=== PATIENT | male | born 1980 | race African-American/Black ===

== ENCOUNTER 2017-10-24 11:11 | Inpatient (IN) ==
[2017-10-24] MEDS ORDERED: Lidocaine PF 1% Inj 5 ML Syringe INFILTRATN ONE (12:00)
[2017-10-24] MEDS ORDERED: Phenylephrine/NS 1000 MCG/10ML Syringe IV.PUSH ONE (12:00)
[2017-10-24] MEDS ORDERED: Chlorhexidine Gluconate 2% 1 Pack (2 Cloths) TOPICAL SCH (12:15)
[2017-10-24] MEDS ORDERED: Metoprolol Tartrate 25 MG Tablet PO SCH (12:15)
--- NOTE | 2017-10-24 12:29 | XR ---
EXAM DATE: 10/24/2017 12:24 PM EDT AGE/SEX: 37 years / Male INDICATIONS: Evaluate for pneumonia, pneumothorax, or any communicable disease. Pre op proctocolecto my. CLINICAL DATA: This is the patient's initial encounter. Patient reports that signs and symptoms have been present for 1 day and indicates a pain score of 0/10. MEDICAL/SURGICAL HISTORY: None. None. COMPARISON: No prior exams available for comparison. FINDINGS: A single AP view of the chest demonstrates the lungs to be symmetrically aerated without evidence of mass, infiltrate or effusion. Minimal linear scarring right lung base. The cardiomediastinal contour s are unremarkable. Osseous structures are intact. CONCLUSION: No active disease. Electronically signed by: Jay Doe MD 10/24/2017 12:27 PM EDT
[2017-10-24 12:41] LABS: Bacteria,Urine Occasional /hpf; Bilirubin,Urine Negative (Negative); Clarity,Urine Hazy (Clear); Color,Urine Yellow (Yellw/Straw); Glucose,Urine (UA) Negative (Negative); Hyaline Casts,Urine 1 /lpf (0-3); Leukocyte Esterase,Urine Moderate (Negative); Mucus,Urine Few /lpf (Occasional); Nitrite,Urine Negative (Negative); Specific Gravity,Urine 1.029 (1.002-1.035); Squamous Epithelial Cell,Urine <1 /hpf (0-5)
[2017-10-24] MEDS ORDERED: HYDROmorphone PF Inj 2 MG/ML Vial ONE (12:41)
[2017-10-24] MEDS ORDERED: Sodium Chlor 0.9% Inj 500 ML IV.SIG SCH (13:00)
[2017-10-24 13:11] LABS: Hematocrit 31.3 % (39.0-51.0); Hemoglobin 9.8 gm/dL (13.0-17.0); Mean Corpuscular HGB Conc 31.3 % (32.0-36.0); Mean Corpuscular Hemoglobin 20.1 pg (27.0-34.0); Mean Corpuscular Volume 64.2 fL (80.0-100.0); Mean Platelet Volume 9.6 fL (7.0-11.0); Platelet Count 188 th/mm3 (150-450); Red Blood Count 4.87 mil/mm3 (4.50-5.90); Red Cell Distribution Width 18.9 % (11.6-17.2); White Blood Count 7.8 th/mm3 (4.0-11.0)
[2017-10-24 13:13] LABS: INR 1.1 Ratio; Prothrombin Time 11.4 sec (9.8-11.6)
[2017-10-24 13:26] LABS: Alanine Aminotransferase 18 U/L (12-78); Albumin 4.4 g/dL (3.4-5.0); Anion Gap 11 meq/L (5-15); Aspartate Aminotransferase 15 U/L (15-37); Blood Urea Nitrogen 13 mg/dL (7-18); Calcium 8.8 mg/dL (8.5-10.1); Carbon Dioxide 24.9 meq/L (21.0-32.0); Chloride 107 meq/L (98-107); Glomerular Filtration Rate 77 mL/min (>89); Glucose,Random 80 mg/dL (74-106); Potassium 3.6 meq/L (3.5-5.1); Sodium 143 meq/L (136-145)
[2017-10-24 13:28] LABS: Alkaline Phosphatase 68 U/L (45-117); Total Protein 7.5 g/dL (6.4-8.2)
[2017-10-24 14:02] LABS: Lymphocytes 10 % (9-44); Monocytes 8 % (0-8)
[2017-10-24 14:04] LABS: Acanthocytes Occ
[2017-10-24 14:05] LABS: Ovalocytes 1+; Platelet Estimate Normal (Normal); Platelet Morphology Normal (Normal)
[2017-10-24] MEDS ORDERED: Sugammadex Inj 200 MG/2 ML Vial IV.PUSH ONE (16:47)
[2017-10-24] MEDS ORDERED: Potassium Chlor 20 mEq Premix 20 MEQ/100 ML PIGGYBACK IV.SIG PRN (17:16)
[2017-10-24] MEDS ORDERED: Potassium Chlor 40 mEq Premix 40 MEQ/100 ML PIGGYBACK IV.SIG PRN (17:16)
[2017-10-24] MEDS ORDERED: fentaNYL Citrate Inj 100 MCG/2 ML Ampul ONE (17:23)
[2017-10-24] MEDS: KCL 20 mEq/D5W/LR Inj 1,000 ML IV.CONT SCH ×2 (17:30→23:10)
[2017-10-24] MEDS: Morphine Inj 30 MG/30 ML PCA.VIAL PCA PRN (17:30)
[2017-10-24] MEDS ORDERED: Naloxone Inj 0.4 MG/ML Vial IV.PUSH PRN (17:38)
[2017-10-24] MEDS ORDERED: Morphine Inj 4 MG/ML Vial IV.SIG ONE (17:38)
[2017-10-24] MEDS ORDERED: KCL 20 mEq/D5W/LR Inj 1,000 ML ONE (17:42)
[2017-10-24] MEDS ORDERED: Morphine Inj 30 MG/30 ML PCA.VIAL PCA ONE (17:44)
[2017-10-24] MEDS ORDERED: *morphine SULFATE 10 MG/ML PERIprocedure ONLY ONE (17:48)
[2017-10-24] MEDS ORDERED: *Meperidine Inj 25 MG/ML Vial PERIprocedural Use ONLY ONE (18:01)
[2017-10-24 18:13] LABS: Baso # (Auto) 0.1 th/mm3 (0.0-0.2); Baso % (Auto) 0.5 % (0.0-2.0); Hematocrit 29.1 % (39.0-51.0); Hemoglobin 8.9 gm/dL (13.0-17.0); Lymph # (Auto) 0.7 th/mm3 (1.0-4.8); Lymph % (Auto) 4.8 % (9.0-44.0); Mean Corpuscular Hemoglobin 19.8 pg (27.0-34.0); Mean Corpuscular Volume 65.2 fL (80.0-100.0); Mean Platelet Volume 9.1 fL (7.0-11.0); Mono # (Auto) 0.7 th/mm3 (0.0-0.9); Mono % (Auto) 4.3 % (0.0-8.0); Neut # (Auto) 14.1 th/mm3 (1.8-7.7); Neut % (Auto) 90.4 % (16.0-70.0); Platelet Count 173 th/mm3 (150-450); Red Blood Count 4.47 mil/mm3 (4.50-5.90); Red Cell Distribution Width 19.1 % (11.6-17.2); White Blood Count 15.6 th/mm3 (4.0-11.0)
[2017-10-24 18:15] LABS: Mean Corpuscular HGB Conc 30.4 % (32.0-36.0)
[2017-10-24 18:51] LABS: Calcium 7.7 mg/dL (8.5-10.1); Carbon Dioxide 24.4 meq/L (21.0-32.0); Potassium 3.6 meq/L (3.5-5.1)
[2017-10-24] MEDS ORDERED: Zolpidem Tartrate 5 MG Tablet PO PRN (21:00)
[2017-10-24] MEDS: Dextrose 5%/NaCl 0.9% Inj 1,000 ML IV.CONT SCH ×2 (21:38→21:41)
[2017-10-25] MEDS: Ketorolac Inj 30 MG/ML (IVP) Vial IV.PUSH PRN ×2 (02:25→12:45)
[2017-10-25] MEDS: KCL 20 mEq/D5W/LR Inj 1,000 ML IV.CONT SCH ×5 (03:00→20:20)
[2017-10-25] MEDS ORDERED: KCL 20 mEq/D5W/LR Inj 1,000 ML IV.CONT SCH (03:30)
[2017-10-25] MEDS: Dextrose 5%/NaCl 0.9% Inj 1,000 ML IV.CONT SCH (05:19)
[2017-10-25 06:07] LABS: Baso % (Auto) 0.3 % (0.0-2.0); Hematocrit 26.3 % (39.0-51.0); Hemoglobin 8.2 gm/dL (13.0-17.0); Lymph # (Auto) 1.4 th/mm3 (1.0-4.8); Lymph % (Auto) 8.9 % (9.0-44.0); Mean Corpuscular HGB Conc 31.3 % (32.0-36.0); Mean Corpuscular Hemoglobin 20.1 pg (27.0-34.0); Mean Platelet Volume 8.9 fL (7.0-11.0); Mono # (Auto) 1.8 th/mm3 (0.0-0.9); Mono % (Auto) 11.4 % (0.0-8.0); Neut # (Auto) 12.6 th/mm3 (1.8-7.7); Neut % (Auto) 79.4 % (16.0-70.0); Platelet Count 163 th/mm3 (150-450); Red Blood Count 4.11 mil/mm3 (4.50-5.90); Red Cell Distribution Width 19.3 % (11.6-17.2); White Blood Count 15.8 th/mm3 (4.0-11.0)
[2017-10-25 06:27] LABS: Calcium 8.1 mg/dL (8.5-10.1); Potassium 3.8 meq/L (3.5-5.1)
[2017-10-25] MEDS: Pantoprazole Inj 40 MG Vial IV.PUSH SCH (08:23)
--- NOTE | 2017-10-25 11:56 | MP ---
cc: Jeromy Pizano MD, John T MD DATE OF OPERATION: 10/24/2017 PROCEDURE: Total proctocolectomy, ileoanal J-pouch. PREOPERATIVE DIAGNOSIS: Familial polyposis syndrome. POSTOPERATIVE DIAGNOSIS: Familial polyposis syndrome. ANESTHESIA: General endotracheal. SURGEON: Jeromy Pizano MD. SUPERVISOR CELL OPERATION: Arsenio Jaffe MD. ESTIMATED BLOOD LOSS: 300 mL. OPERATING TIME: Two hours and 40 minutes. OPERATIVE FINDINGS: This patient was found to have familial polyposis syndrome. His mother had a total abdominal colectomy and ileorectal surgery done many years ago. He was found to have thousands of polyps in his colon; and, for this reason, a total proctocolectomy ileoanal pouch was recommended. At surgery, the patient had had a previous laparotomy for blunt trauma some years ago and was found to have multiple adhesions throughout the abdominal cavity and the small bowel. He also was found to have an internal hernia near the ileocolic vessels with a loop of small bowel through the mesentery of the ileocolonic region. Once this was unwrapped we were able to do a total proctocolectomy and an ileoanal pouch procedure. Exploration of the remainder of the abdomen revealed that the colon, small bowel, liver, gallbladder, stomach was all palpably normal. He had very little omentum because of his thin body habitus; however, it was mobilized from the transverse colon and spared. OPERATIVE TECHNIQUE: The patient was placed on the table in the supine position. After adequate general endotracheal anesthesia, the legs were placed in the perineal lithotomy position. The abdomen and perineum were prepped and draped in the usual manner. A midline incision was made from the pubis to the xiphoid through his previous upper abdominal incision and mesh from his ventral hernia repair. The abdominal cavity was entered with the above-mentioned findings and the adhesions to the abdominal wall were taken down with electrocautery. The small bowel adhesions throughout the length of the small bowel were lysed with electrocautery and sharp dissection and the internal hernia that was found near the cecum and the ileocolic vessels was unwrapped and the adhesions were taken down. Once the small bowel adhesions were taken down, the cecum and ascending colon were mobilized as well as the hepatic flexure and transverse colon entering the lesser sac, mobilizing the slight wispy omentum from the transverse colon. Next, the splenic flexure was mobilized as was the descending colon. Attention was turned to the sigmoid colon and it was fully mobilized. He had a fairly redundant sigmoid colon. Next, the inferior mesenteric artery was identified, doubly clamped, cut, and doubly ligated with 0 Vicryl ligatures and the left and right ureters were identified and protected at all times. The left colic vessels were clamped, cut, and ligated and then the middle colic vessels were doubly clamped, cut, and doubly ligated as well. The right colic vessels were clamped, cut, and ligated and the ileocolic vessels were clamped, cut, and ligated as well. Once this was done, the terminal ileum was divided with a DENA-75 stapling device. The retrorectal space was entered and the dissection was taken down to the pelvic floor posteriorly. The lateral pelvic peritoneum was incised bilaterally and then the anterior cul-de-sac was entered and the dissection was taken down posterior to the prostate to the pelvic floor anteriorly. Once the full colon and rectum were mobilized all the way to the levator muscles, the rectum was divided with a contour stapling device just above the dentate line. Once this was done, the pelvis and abdominal cavity were irrigated thoroughly with saline solution, aspirated dry, and hemostasis was obtained. Once this was done, we then created the ileal J pouch and created a 9 cm pouch finding the portion of the distal small bowel that would reach the furthest without any tension on the mesentery. Once this was achieved, an enterotomy was made and a 75 DENA stapler was placed down both limbs and fired. We then fired another half of the DENA stapler down the 2 limbs and a 9 cm pouch was created. The distal efferent defunctionalized piece of small bowel that was not going to be functional was cleared of its mesentery along the small bowel and then that portion of the end of the small bowel was removed with an [employer] DENA stapling device once again. Once this was accomplished, the pouch length was measured at about 9 cm. A pursestring stapler was then used for the pouch opening where the pouch was created. It should be mentioned that the first fire of the DENA instrument only fired about 1 cm and it needed to be re-fired. This area of the staple line, once the stapler was used, was oversewn for approximately 1 cm with interrupted 3-0 Vicryl seromuscular sutures just to reinforce. Next, the anvil of the [place] 29 EEA stapler was placed in the ileoanal pouch and the pursestring that was previously placed was tied. Dr. Jaffe then went below and placed the EEA instrument transanally and brought the trocar out posterior to the transverse staple line and the instrument was connected, closed, and fired, creating anastomosis. The afferent limb of the small bowel was over to the right and the efferent limb was to the left and the mesentery was anterior. Once this was done, the anastomosis was checked with a proctosigmoidoscopy with Dr. Jaffe and air was insufflated into the pouch and no air leaks were identified. We then chose an area for a diverting ileostomy on the right side of the abdomen and the stoma site was made in the right lower quadrant in the lateral portion of the rectus muscle. The stoma site in the small bowel was chosen and the mesentery was cleared and the small bowel was stapled closed on the distal side with a [place] 30 stapler to make it a fully diverting stoma. The stoma was brought out through the stoma site. Next, the abdominal cavity was irrigated thoroughly with several more liters of saline solution, aspirated dry. Again, hemostasis was maintained. A drain was placed through a separate stab wound in the left lower quadrant into the pelvis and brought out. Once this was achieved, the bowels were replaced in the abdominal cavity in an medical recruiter manner and the abdominal cavity was closed in layers with a single layer closure of a double-stranded #1 PDS through the fascia and the previously divided mesh from his hernia repair. Once this was done, the subcutaneous tissue was irrigated thoroughly with saline solution and the skin was closed with running 3-0 Vicryl subcuticular sutures. Our attention was then turned to the ileostomy, which was opened and then matured in an end loop fashion, maturing the ileostomy with interrupted 3-0 Vicryl sutures. A 57 mm appliance was placed on the ileostomy and dressings were applied and taped into place. Sponge, needle, and instrument counts were reported as correct. The estimated blood loss was 300 mL. Operating time was 2 hours and 40 minutes. The patient tolerated the procedure well and left the operating room in good condition. MD NIKKO Carmen/salina , 11:12 AM , 11:26 AM MTDDeidra
[2017-10-25] MEDS: Morphine Inj 30 MG/30 ML PCA.VIAL PCA PRN (12:56)
--- NOTE | 2017-10-25 14:50 | P.PNCS ---
Subjective Colorectal Surgery Post Op Day #: 1 Interval history: Very comfortable. Will stop CARDIAC MONITOR in AM. Start oral pain meds. No N or V. Small liquid stool from Ileostomy. Objective Result Diagrams: 10/25/17 05:27 10/25/17 05:27 Objective Remarks: VS-S Abd: soft,flat,dressing dry. Drain now serous. Assessment and Plan - Plan OOB ambulate,transfer D/C tele, Stoma nurse consult, Discharge planning consult. Decrease IVs,slowly advance diet. D/C chowdary and CARDIAC MONITOR in AM
--- NOTE | 2017-10-25 18:47 | P.PNWCN ---
Wound Care Nurse Consult Description: Received new ostomy teaching ostomy management consult from Doctor Pizano Communicated with: USHA Or[facility] and Doctor Pizano Recommendation: Please empty pouch when 1/3 to 1/2 full. Change ostomy appliance every 3 to 5 days or as needed if leaking. Monitor stoma for output and color. Use Durahesive 2 1/4 wafers provided for patient in room instead of using stomahesive wafers provided in colostomy kits if available Incision - Incision Anterior Abdomen Other Cover Dressing: foam tape Bowel Diversion Stoma - Bowel Stoma Right Lower Abdomen Stoma Appearance: Beefy Red, Oval Collection Device: Two-piece, Moldable Wafer Drainage Description: Liquid, Green Wafer Size: 2 1/4 Moldable Stoma Care: Pouch and Wafer Changed, Skin Care Sally-Stomal Skin Appearance: Intact Sally-Stomal Surrounding Tissue Sensation Description: No Symptoms - Additional Information Additional Information: Patient seen on [facility] for new ostomy teaching and ostomy management.Patient is laying in bed upon verse writer's arrival.Patient is awake and alert. Discussed with patient what to expect after ileostomy surgery including diet,how and when to change ostomy appliance, s/s of dehydration, when to empty pouch, stoma color, stoma appearance, and output. Patient was able to return demonstrate application of wafer and pouch to practice stoma. Assessed stoma,ileostomy stoma is located on the RLQ of abdomen.Stoma presents as red and oval through transparent pouch and measures 1 1/4 tall and 1 3/4 wide. Wafer is noted with erosion beyond the flange and is lifting up near incision line. Removed ostomy appliance in place using adhesive remover. Adhesive beyond hydrocolloid is is lifting up and saturated under midline incision dressing. Removed this carefully not to disturb midline incision dressing to much. Applied new wafer molding it to size. Applied skin barrier film to peristomal skin before applying new wafer with attached adaptor. Snapped pouch in place. Adhesive strip near incision line was cut back so not lay on incision line.Gauze pad was applied to separate dressing from adhesive strip on ostomy wafer and reinforce dressing to midline incision. Patient tolerated procedure well.Call placed to Doctor cement mason [address] to notify of ileostomy appliance change with midline dressing disturbance, and reinforcement of dressing.
[2017-10-26] MEDS: KCL 20 mEq/D5W/LR Inj 1,000 ML IV.CONT SCH ×3 (02:11→20:50)
[2017-10-26 06:51] LABS: Calcium 8.3 mg/dL (8.5-10.1); Carbon Dioxide 30.2 meq/L (21.0-32.0)
[2017-10-26 07:11] LABS: Baso # (Auto) 0.1 th/mm3 (0.0-0.2); Baso % (Auto) 0.5 % (0.0-2.0); Eos % (Auto) 0.2 % (0.0-4.0); Hematocrit 27.5 % (39.0-51.0); Hemoglobin 8.3 gm/dL (13.0-17.0); Lymph % (Auto) 13.7 % (9.0-44.0); Mean Corpuscular Hemoglobin 19.8 pg (27.0-34.0); Mean Corpuscular Volume 65.3 fL (80.0-100.0); Mean Platelet Volume 10.1 fL (7.0-11.0); Mono # (Auto) 1.1 th/mm3 (0.0-0.9); Mono % (Auto) 7.4 % (0.0-8.0); Neut # (Auto) 11.5 th/mm3 (1.8-7.7); Neut % (Auto) 78.2 % (16.0-70.0); Platelet Count 173 th/mm3 (150-450); Red Blood Count 4.22 mil/mm3 (4.50-5.90); Red Cell Distribution Width 19.1 % (11.6-17.2); White Blood Count 14.7 th/mm3 (4.0-11.0)
[2017-10-26 07:17] LABS: Mean Corpuscular HGB Conc 30.3 % (32.0-36.0)
[2017-10-26] MEDS: Pantoprazole Inj 40 MG Vial IV.PUSH SCH (08:18)
[2017-10-27 00:08] VITALS: O2SAT 99
[2017-10-27] MEDS: KCL 20 mEq/D5W/LR Inj 1,000 ML IV.CONT SCH (01:10)
[2017-10-27] MEDS: Pantoprazole Inj 40 MG Vial IV.PUSH SCH (08:18)
[2017-10-27 09:27] VITALS: BP 118/85; RESP 18; TEMP 98.2
[2017-10-27 12:08] VITALS: PULSE 123
--- NOTE | 2017-11-20 14:10 | MD ---
cc: Jeromy Pizano MD DATE OF DISCHARGE: 10/27/2017 ADMISSION DIAGNOSIS: Familial polyposis syndrome. DISCHARGE DIAGNOSIS: Familial polyposis syndrome. OPERATIVE PROCEDURE: 10/24/2017: Total proctocolectomy, ileoanal J-pouch. LABORATORY DATA: The pathology report on the removed specimen revealed full colon and rectum and terminal ilium. There were innumerable adenomatous polyps of the colon, negative for any high-grade dysplasia or malignancy. Ten pericolonic lymph nodes were examined and were all negative for malignancy, as well. The margins of the resection were negative for adenomatous changes. HOSPITAL COURSE: The patient was admitted to the hospital on 10/24/2017, underwent a total proctocolectomy with ileoanal J-pouch and diverting ileostomy. Postoperatively, on the first postoperative day was started on a clear liquid diet; on the second postoperative day was started on full liquid diet. He was discharged from the hospital on postoperative day #3. DISCHARGE INSTRUCTIONS: He is instructed do no driving for 2 weeks, do no heavy lifting for 6 weeks and to call me with any problems. He was instructed to followup with me in the office in 2 weeks' time. Jeromy Pizano MD JWALI/norman , 01:28 PM , 01:33 PM
== END 2017-10-27 11:05 | disposition home health service (06) ==
LOC: HSDI 11:11 → HCIS 21:36
PROVIDERS: ADMIT Colon & Rectal Surgery; ATTEND Colon & Rectal Surgery

== ENCOUNTER 2017-12-01 19:49 | Observation (INO) ==
[2017-12-01] MEDS ORDERED: Sod Chloride 0.9% Inj 1,000 ML IV.SIG ONE ×2 (21:27→22:46)
[2017-12-01 21:56] LABS: Baso # (Auto) 0.1 th/mm3 (0.0-0.2); Baso % (Auto) 0.9 % (0.0-2.0); Eos # (Auto) 0.1 th/mm3 (0.0-0.4); Hematocrit 34.2 % (39.0-51.0); Hemoglobin 10.7 gm/dL (13.0-17.0); Lymph # (Auto) 2.4 th/mm3 (1.0-4.8); Lymph % (Auto) 22.8 % (9.0-44.0); Mean Corpuscular HGB Conc 31.3 % (32.0-36.0); Mean Corpuscular Hemoglobin 19.6 pg (27.0-34.0); Mean Corpuscular Volume 62.6 fL (80.0-100.0); Mean Platelet Volume 9.5 fL (7.0-11.0); Mono # (Auto) 0.9 th/mm3 (0.0-0.9); Mono % (Auto) 8.5 % (0.0-8.0); Neut # (Auto) 7.1 th/mm3 (1.8-7.7); Neut % (Auto) 66.8 % (16.0-70.0); Platelet Count 246 th/mm3 (150-450); Red Blood Count 5.46 mil/mm3 (4.50-5.90); Red Cell Distribution Width 17.8 % (11.6-17.2); White Blood Count 10.6 th/mm3 (4.0-11.0)
[2017-12-01 22:07] LABS: Albumin 4.7 g/dL (3.4-5.0); Anion Gap 7 meq/L (5-15); Aspartate Aminotransferase 14 U/L (15-37); Blood Urea Nitrogen 26 mg/dL (7-18); Calcium 9.1 mg/dL (8.5-10.1); Carbon Dioxide 23.9 meq/L (21.0-32.0); Chloride 102 meq/L (98-107); Glomerular Filtration Rate 71 mL/min (>89); Glucose,Random 95 mg/dL (74-106); Potassium 4.2 meq/L (3.5-5.1); Sodium 133 meq/L (136-145)
[2017-12-01 22:08] LABS: Alanine Aminotransferase 23 U/L (12-78)
[2017-12-01 22:10] LABS: Alkaline Phosphatase 91 U/L (45-117); Total Protein 8.6 g/dL (6.4-8.2)
[2017-12-01] MEDS ORDERED: Sod Chloride 0.9% Inj 1,000 ML IV.CONT SCH (23:00)
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
[2017-12-02] MEDS: Pantoprazole Inj 40 MG Vial IV.PUSH SCH (00:09)
[2017-12-02] MEDS ORDERED: Sod Chloride 0.9% Inj 1,000 ML IV.SIG SCH (03:00)
[2017-12-02 04:34] LABS: Bilirubin,Urine Negative (Negative); Clarity,Urine Hazy (Clear); Color,Urine Yellow (Yellw/Straw); Glucose,Urine (UA) Negative (Negative); Leukocyte Esterase,Urine Negative (Negative); Mucus,Urine Few /lpf (Occasional); Nitrite,Urine Negative (Negative); Specific Gravity,Urine 1.029 (1.002-1.035); Squamous Epithelial Cell,Urine <1 /hpf (0-5)
[2017-12-02 06:47] LABS: Hematocrit 28.7 % (39.0-51.0); Hemoglobin 8.9 gm/dL (13.0-17.0); Mean Corpuscular Hemoglobin 19.5 pg (27.0-34.0); Mean Corpuscular Volume 62.9 fL (80.0-100.0); Mean Platelet Volume 9.1 fL (7.0-11.0); Platelet Count 188 th/mm3 (150-450); Red Blood Count 4.56 mil/mm3 (4.50-5.90); Red Cell Distribution Width 17.6 % (11.6-17.2); White Blood Count 8.3 th/mm3 (4.0-11.0)
[2017-12-02 07:56] LABS: Calcium 8.1 mg/dL (8.5-10.1); Carbon Dioxide 24.1 meq/L (21.0-32.0); Potassium 4.2 meq/L (3.5-5.1)
[2017-12-02 08:39] LABS: Acanthocytes Occ; Lymphocytes 17 % (9-44); Monocytes 6 % (0-8); Platelet Estimate Normal (Normal); Platelet Morphology Normal (Normal)
--- NOTE | 2017-12-02 09:37 | P.PNCS ---
Subjective Interval history: Pt admitted last night 23 hour obs for mild dehydration and lethargy and N and V. Feels better this AM after hydration, but still mildly weak. Will try diet today Objective Result Diagrams: 12/02/17 06:11 12/02/17 06:11 Objective Remarks: Abd: soft,flat, non tender Assessment and Plan - Plan BUN,Creatinine improving with hydration. Continue IVs at 200/hr. OOB. Consult Sarah Gomez RN for Ileostomy questions. Start diet. Ambulate. Probable D/C tomorrow
--- NOTE | 2017-12-02 10:05 | MH ---
cc: Jeromy Pizano MD, John T MD DATE OF ADMISSION: 12/01/2017 CHIEF COMPLAINT: Weakness, lethargy, nausea, vomiting. HISTORY OF PRESENT ILLNESS: This patient is well known to me. On 10/24/2017, he underwent a total proctocolectomy, ileoanal pouch procedure with a diverting loop ileostomy. The patient has done well postoperatively. I have seen him a couple of times in the office. He has had no problems with dehydration up until now. The patient became progressively weaker over the last several days. He tried to go out to one of his daughter's football games and became weak and had to go home. The patient says that he also began having nausea and a small amount of vomiting and was unable to eat. His ileostomy has been functioning well. He has had no significant drainage from his ileorectal pouch. Past medical history, family history social history, review of systems are negative except for the fact that he has familial polyposis syndrome, had thousands of polyps present in his colon, and underwent the total proctocolectomy over a month ago. PHYSICAL EXAMINATION: GENERAL: Well-developed, well-nourished, thin male in no acute distress. SKIN: Warm and dry. HEENT: Extraocular muscles intact. NECK: Supple. ABDOMEN: Flat, soft, nontender, no hematemesis. The wound is well healed. Ileostomy is functioning. He says he is having some itching around the ileostomy. RECTAL: Exam was not done. EXTREMITIES: Range of motion within normal limits. NEUROLOGIC: Grossly normal. IMPRESSION: Status post total proctocolectomy with ileoanal pouch procedure done about 5 weeks ago with a diverting ileostomy. The patient became slightly more dehydrated with an elevated BUN and creatinine on admission of BUN of 26, creatinine of 1.35. Sodium was slightly decreased at 133. Bilirubin was elevated at 1.2, as was his total protein 8.6, all due to dehydration. PLAN: I will continue to rehydrate him. I am going to change his IV to lactated Ringers solution, since he has had the normal saline and his sodium, potassium, chloride are all up at this time. BUN and creatinine slightly down this morning at 20 and 1.14. We will ask enterostomal nursing to see the patient as well for the itching around his ileostomy and we will monitor his ileostomy outputs to see if we need any Imodium started. We will start him on a regular diet. MD NIKKO Carmen/teresa , 09:45 AM , 09:52 AM
--- NOTE | 2017-12-02 15:34 | P.PNWCN ---
Wound Care Nurse Consult Description: Consult for Ostomy Management of temporary RLQ Ileostomy per Dr Pizano Communicated with: Patient RN Recommendation: Remove wafer Q3D and cleanse skin, pat dry. If there are any open areas, sprinkle stoma powder and wipe away excess. Maurice with Cavilon skin barrier film and allow to air dry. Place a new wafer size 1 3/4" over stoma and place pouch, ensuring the bottom is closed. Hold hand over pouching system for ~3 min to warm. Additional information: Patient seen in H pod for ostomy teaching. Patient was educated extensively on skin care and the need to stay hydrated with his ileostomy. Supplies obtained by journalists and other writers and brought to patient to take home with him until his shipment of supplies can be obtained.
[2017-12-03] MEDS: Pantoprazole Inj 40 MG Vial IV.PUSH SCH (00:43)
[2017-12-03 07:26] LABS: Hematocrit 24.9 % (39.0-51.0); Hemoglobin 7.8 gm/dL (13.0-17.0); Mean Corpuscular HGB Conc 31.4 % (32.0-36.0); Mean Corpuscular Hemoglobin 19.8 pg (27.0-34.0); Mean Platelet Volume 8.9 fL (7.0-11.0); Platelet Count 158 th/mm3 (150-450); Red Blood Count 3.96 mil/mm3 (4.50-5.90); Red Cell Distribution Width 17.7 % (11.6-17.2)
[2017-12-03 07:45] LABS: Anion Gap 8 meq/L (5-15); Blood Urea Nitrogen 12 mg/dL (7-18); Calcium 8.2 mg/dL (8.5-10.1); Carbon Dioxide 27.3 meq/L (21.0-32.0); Chloride 109 meq/L (98-107); Glomerular Filtration Rate Greater Than 89 mL/min (>89); Glucose,Random 84 mg/dL (74-106); Potassium 4.1 meq/L (3.5-5.1); Sodium 144 meq/L (136-145)
[2017-12-03 07:53] VITALS: RESP 16
[2017-12-03 11:51] VITALS: BP 92/50; PULSE 58; TEMP 97.8; O2SAT 100
== END 2017-12-03 13:37 | disposition home or self-care (01) ==
LOC: NEPC 19:49 → NEDA 19:49 → NEPHCDU 12-02 00:18
PROVIDERS: ADMIT Colon & Rectal Surgery; ATTEND Colon & Rectal Surgery

== ENCOUNTER 2018-01-16 11:13 | Inpatient (IN) ==
[2018-01-16] MEDS ORDERED: Sodium Chlor 0.9% Inj 500 ML IV.CONT ONE (11:45)
[2018-01-16] MEDS ORDERED: Metoprolol Tartrate 25 MG Tablet PO ONE (11:45)
[2018-01-16] MEDS ORDERED: Chlorhexidine Gluconate 2% 1 Pack (2 Cloths) TOPICAL ONE (11:45)
[2018-01-16] MEDS ORDERED: Dextrose 5%/NaCl 0.9% Inj 1,000 ML IV.CONT SCH (12:00)
[2018-01-16] MEDS ORDERED: ceFAZolin 1 GM Premix Inj 1 GM/50 ML IV.SIG SCH (12:00)
[2018-01-16 12:34] LABS: Baso # (Auto) 0.1 th/mm3 (0.0-0.2); Eos # (Auto) 0.1 th/mm3 (0.0-0.4); Eos % (Auto) 1.9 % (0.0-4.0); Hematocrit 28.1 % (39.0-51.0); Hemoglobin 8.6 gm/dL (13.0-17.0); Lymph # (Auto) 2.4 th/mm3 (1.0-4.8); Lymph % (Auto) 31.7 % (9.0-44.0); Mean Corpuscular Hemoglobin 19.5 pg (27.0-34.0); Mono # (Auto) 0.5 th/mm3 (0.0-0.9); Mono % (Auto) 6.7 % (0.0-8.0); Neut # (Auto) 4.4 th/mm3 (1.8-7.7); Neut % (Auto) 58.7 % (16.0-70.0); Platelet Count 253 th/mm3 (150-450); Red Cell Distribution Width 19.4 % (11.6-17.2); White Blood Count 7.6 th/mm3 (4.0-11.0)
[2018-01-16 12:35] LABS: Mean Corpuscular HGB Conc 30.5 % (32.0-36.0)
[2018-01-16 13:27] LABS: Eosinophils 2 % (0-4); Lymphocytes 12 % (9-44); Metamyelocytes 1 % (0-1); Monocytes 5 % (0-8)
[2018-01-16 13:28] LABS: Acanthocytes Occ; Ovalocytes 1+; Platelet Estimate Normal (Normal); Platelet Morphology Normal (Normal)
[2018-01-16] MEDS ORDERED: Sugammadex Inj 200 MG/2 ML Vial IV.PUSH ONE (13:38)
[2018-01-16] MEDS ORDERED: Ketorolac Inj 30 MG/ML (IVP) Vial IV.PUSH ONE (13:52)
[2018-01-16] MEDS ORDERED: Lidocaine PF 1% Inj 5 ML Syringe INFILTRATN ONE (13:52)
[2018-01-16] MEDS ORDERED: Potassium Chlor 20 mEq Premix 20 MEQ/100 ML PIGGYBACK IV.SIG PRN (15:12)
[2018-01-16] MEDS ORDERED: Potassium Chlor 40 mEq Premix 40 MEQ/100 ML PIGGYBACK IV.SIG PRN (15:12)
[2018-01-16] MEDS ORDERED: Ketorolac Inj 30 MG/ML (IVP) Vial IV.PUSH PRN (15:16)
[2018-01-16] MEDS ORDERED: *Meperidine Inj 25 MG/ML Vial PERIprocedural Use ONLY ONE (15:27)
[2018-01-16] MEDS ORDERED: Naloxone Inj 0.4 MG/ML Vial IV.PUSH PRN (15:32)
[2018-01-16] MEDS ORDERED: Morphine Inj 30 MG/30 ML PCA.VIAL PCA PRN (15:32)
[2018-01-16] MEDS ORDERED: fentaNYL Citrate Inj 100 MCG/2 ML Ampul ONE (15:34)
[2018-01-16] MEDS ORDERED: Morphine Inj 4 MG/ML Vial ONE (15:34)
[2018-01-16 16:35] LABS: Hematocrit 31.1 % (39.0-51.0); Hemoglobin 9.7 gm/dL (13.0-17.0); Mean Corpuscular HGB Conc 31.2 % (32.0-36.0); Mean Corpuscular Hemoglobin 19.9 pg (27.0-34.0); Mean Corpuscular Volume 63.8 fL (80.0-100.0); Mean Platelet Volume 8.6 fL (7.0-11.0); Platelet Count 168 th/mm3 (150-450); Red Blood Count 4.87 mil/mm3 (4.50-5.90); Red Cell Distribution Width 19.5 % (11.6-17.2); White Blood Count 13.3 th/mm3 (4.0-11.0)
[2018-01-16 17:06] LABS: Eosinophils 1 % (0-4); Lymphocytes 11 % (9-44); Monocytes 2 % (0-8)
[2018-01-16 17:08] LABS: Platelet Estimate Normal (Normal); Platelet Morphology Clumped (Normal)
[2018-01-16 17:25] LABS: Calcium 8.5 mg/dL (8.5-10.1); Carbon Dioxide 24.7 meq/L (21.0-32.0); Potassium 3.7 meq/L (3.5-5.1)
--- NOTE | 2018-01-16 19:29 | MP ---
cc: Jeromy Pizano MD DATE OF OPERATION: 01/16/2018 PREOPERATIVE DIAGNOSIS: Diverting loop ileostomy. POSTOPERATIVE DIAGNOSIS: Diverting loop ileostomy. PROCEDURE PERFORMED: Small bowel resection with ileostomy closure. ANESTHESIA: General endotracheal. SURGEON: Jeromy Pizano MD ORDER DESK CLERK: Arsenio Jaffe MD ESTIMATED BLOOD LOSS: 25 mL. OPERATING TIME: 45 minutes. OPERATIVE FINDINGS: This patient had a diverting loop ileostomy done as part of a total proctocolectomy, ileoanal J-pouch procedure for familial polyposis syndrome. The patient has done fairly well with several bouts of dehydration, but has done well of late. Ileostomy was due to be closed at this time. At surgery, mobilization of the small bowel was done and the small bowel was resected proximally and distally to the stoma and a functional end-to-end anastomosis was done. OPERATIVE TECHNIQUE: The patient was placed on the table in the supine position. After adequate general endotracheal anesthesia, a transverse elliptical incision was made around the ileostomy and taken down through the subcutaneous tissue to the fascial layer. The small bowel was dissected free circumferentially around the fascia and the rectus muscle down to the internal fascial sheath. The peritoneal cavity was entered and the bowel was dissected off circumferentially. Because of the tightness of the stoma site, the fascial and muscle incision was extended superiorly and inferiorly and the small bowel in the abdominal cavity was dissected free with sharp dissection. Several loops of small bowel were stuck to the proximal and distal limbs of the ileostomy and these were dissected free. They were thin inflammatory adhesions. None of them were dense or adherent. No serosal tears or enterotomies were created. Once the small bowel edges proximal and distal to the stoma were freed adequately from the abdominal wall and the other small bowel loops, the distal limb of the ileum was cleared and clamped with a Jodi clamp and divided. Next, the proximal limb was cleared of its mesentery and divided with an Ethicon DENA 55 stapling device and the mesentery was clamped, cut and ligated with 0 Vicryl ligature. The anastomosis was carried out along the antimesenteric border of the bowel with an Ethicon DENA 55 stapler and the enterotomy was then closed with a TX 60 blue staple height stapler. It should be mentioned that the internal staple line on the mucosal side of the anastomosis was bleeding fairly profusely in several areas. They were all near each other and were treated with interrupted 3-0 Vicryl [id number] sutures to control the bleeding. Once this was done, the enterotomy was closed with a TX 60 as described above. All other hemostasis was excellent. The bowel was replaced in the abdominal cavity and the abdominal cavity was closed in layers vertically, closing the posterior rectus fascia with a single stranded #1 PDS suture and then the anterior rectus sheath with a single stranded #1 PDS suture as well. The subcutaneous tissue was irrigated thoroughly with saline solution and aspirated dry. The subcutaneous layer was closed with interrupted 3-0 Vicryl sutures. Then, the skin was closed with running 3-0 Vicryl subcuticular suture and a dressing was applied. Sponge, needle and instrument counts were reported as correct. Estimated blood loss was 25 mL. The patient tolerated the procedure well and left the operating room in good condition. MD NIKKO Carmen/kip , 06:50 PM , 06:59 PM
[2018-01-16] MEDS: KCL 20 mEq/D5W/LR Inj 1,000 ML IV.CONT SCH (20:37)
[2018-01-16] MEDS: ceFAZolin 2 GM Premix Inj 2 GM/50 ML PIGGYBACK IV.SIG SCH (20:37)
[2018-01-17] MEDS: ceFAZolin 2 GM Premix Inj 2 GM/50 ML PIGGYBACK IV.SIG SCH ×2 (04:52→13:23)
[2018-01-17] MEDS: KCL 20 mEq/D5W/LR Inj 1,000 ML IV.CONT SCH ×3 (05:50→21:03)
[2018-01-17 07:14] LABS: Hematocrit 25.1 % (39.0-51.0); Hemoglobin 7.8 gm/dL (13.0-17.0); Mean Corpuscular HGB Conc 31.3 % (32.0-36.0); Mean Corpuscular Hemoglobin 19.5 pg (27.0-34.0); Mean Corpuscular Volume 62.5 fL (80.0-100.0); Platelet Count 245 th/mm3 (150-450); Red Blood Count 4.01 mil/mm3 (4.50-5.90); Red Cell Distribution Width 18.7 % (11.6-17.2); White Blood Count 15.7 th/mm3 (4.0-11.0)
[2018-01-17 07:26] LABS: Calcium 8.2 mg/dL (8.5-10.1); Carbon Dioxide 24.9 meq/L (21.0-32.0); Potassium 3.8 meq/L (3.5-5.1)
[2018-01-17 08:16] LABS: Lymphocytes 1 % (9-44); Monocytes 6 % (0-8)
[2018-01-17 08:17] LABS: Ovalocytes 1+; Platelet Estimate Normal (Normal); Platelet Morphology Normal (Normal)
[2018-01-17] MEDS: Pantoprazole Inj 40 MG Vial IV.PUSH SCH (08:54)
--- NOTE | 2018-01-17 16:54 | P.PNCS ---
Subjective Colorectal Surgery Post Op Day #: 1 Interval history: No N or V. Tolerating liquids. Diet to regular tomorrow. Objective Result Diagrams: 01/17/18 06:41 01/17/18 06:41 Objective Remarks: Abd: soft,flat,dressing dry. Assessment and Plan - Plan Regular diet tomorrow. Possible D/C tomorrow Recheck labs and H&H in AM IV to 50/hr
[2018-01-18 04:26] VITALS: O2SAT 98
[2018-01-18 06:10] LABS: Baso # (Auto) 0.1 th/mm3 (0.0-0.2); Baso % (Auto) 0.5 % (0.0-2.0); Eos # (Auto) 0.1 th/mm3 (0.0-0.4); Eos % (Auto) 0.6 % (0.0-4.0); Hematocrit 26.8 % (39.0-51.0); Hemoglobin 8.3 gm/dL (13.0-17.0); Lymph # (Auto) 2.8 th/mm3 (1.0-4.8); Lymph % (Auto) 20.5 % (9.0-44.0); Mean Corpuscular Hemoglobin 19.2 pg (27.0-34.0); Mean Corpuscular Volume 62.2 fL (80.0-100.0); Mean Platelet Volume 9.4 fL (7.0-11.0); Mono # (Auto) 0.9 th/mm3 (0.0-0.9); Mono % (Auto) 6.6 % (0.0-8.0); Neut # (Auto) 9.9 th/mm3 (1.8-7.7); Neut % (Auto) 71.8 % (16.0-70.0); Platelet Count 263 th/mm3 (150-450); Red Blood Count 4.31 mil/mm3 (4.50-5.90); Red Cell Distribution Width 19.1 % (11.6-17.2); White Blood Count 13.8 th/mm3 (4.0-11.0)
[2018-01-18 06:22] LABS: Mean Corpuscular HGB Conc 30.8 % (32.0-36.0)
[2018-01-18 06:35] LABS: Anion Gap 9 meq/L (5-15); Blood Urea Nitrogen 8 mg/dL (7-18); Calcium 8.5 mg/dL (8.5-10.1); Carbon Dioxide 26.9 meq/L (21.0-32.0); Chloride 107 meq/L (98-107); Glomerular Filtration Rate Greater Than 89 mL/min (>89); Glucose,Random 107 mg/dL (74-106); Potassium 3.6 meq/L (3.5-5.1); Sodium 143 meq/L (136-145)
[2018-01-18 08:22] VITALS: BP 100/55; PULSE 75; RESP 15; TEMP 98.3
[2018-01-18] MEDS: Pantoprazole Inj 40 MG Vial IV.PUSH SCH (09:45)
== END 2018-01-18 12:17 | disposition home or self-care (01) ==
LOC: HSDI 11:13 → N07 17:08
PROVIDERS: ADMIT Colon & Rectal Surgery; ATTEND Colon & Rectal Surgery
DX: Z43.2 Encounter for attention to ileostomy